=== PATIENT | female | born 1930 | race Caucasian/White ===

== ENCOUNTER 2016-09-16 22:38 | Emergency (ER) | payer MEDICARE ==
[~2016-09-16] VITALS: Ht 157.4 cm; Wt 57.6 kg
[2016-09-16] MEDS ORDERED: PRAVASTATIN SOD10 MG PO (22:52)
[2016-09-16] MEDS ORDERED: ATENOLOL25 MG PO (22:52)
[2016-09-16] MEDS ORDERED: DYRENIUM50 MG PO (22:53)
[2016-09-16] MEDS ORDERED: CLARITIN10 MG PO (22:53)
[2016-09-17 00:11] LABS: BILIRUBIN NEGATIVE (NEGATIVE); BLOOD NEGATIVE (NEGATIVE); CLARITY CLEAR (CLEAR); COLOR YELLOW (YELLOW); GLUCOSE TRACE (NEGATIVE); KETONE NEGATIVE (NEGATIVE); LEUKO ESTERASE 2+ (NEGATIVE); NITRITE NEGATIVE (NEGATIVE); PROTEIN NEGATIVE (NEGATIVE); SPECIFIC GRAVITY 1.015 (1.005-1.030); UROBILINOGEN 0.2 E.U./dl (0.2-1.0)
[2016-09-17 00:27] LABS: BACTERIA 4+; URINE REFLEX COMMENT YES (NO)
[2016-09-17] MEDS ORDERED: ULTRAM50 MG PO (02:06)
== END 2016-09-17 02:14 | disposition home or self-care (01) ==
LOC: ED 22:38
PROVIDERS: Emergency Medicine Emergency Medical Services
DX: S70.01XA Contusion of right hip, initial encounter (principal); S20.211A Contusion of right front wall of thorax, initial encounter; Z79.899 Other long term (current) drug therapy; W10.9XXA Fall (on) (from) unspecified stairs and steps, initial encounter; Y93.89 Activity, other specified; Y92.89 Other specified places as the place of occurrence of the external cause; Y99.8 Other external cause status